=== PATIENT | male | born 1935 | race Caucasian/White ===

== ENCOUNTER 2022-09-25 19:12 | Inpatient (IN) | payer OTHER, MEDICAID ==
[~2022-09-25] VITALS: Wt 65.8 kg
[2022-09-25 19:00] VITALS: BP 120/60
[2022-09-25 19:28] VITALS: BP 120/60
[2022-09-25 20:00] VITALS: BP 120/60
[2022-09-25] MEDS ORDERED: ASPIRIN ADULT L81 M2 PO (21:19)
[2022-09-25] MEDS ORDERED: ATIVAN1 MG PO (21:20)
[2022-09-25] MEDS ORDERED: DULCOLAX10 M1 R (21:24)
[2022-09-25] MEDS ORDERED: COLACE CLEAR50 MG PO (21:29)
[2022-09-25] MEDS ORDERED: NEURONTIN300 MG PO (21:29)
[2022-09-25] MEDS ORDERED: KLONOPIN1 M1 PO (21:30)
[2022-09-25] MEDS ORDERED: LATU60TA PO (21:31)
[2022-09-25] MEDS ORDERED: NAMENDA10 MG PO (21:39)
[2022-09-25] MEDS ORDERED: OMEPRAZOLE20 M3 PO (21:41)
[2022-09-25] MEDS ORDERED: REMERON15 M2 PO (21:42)
[2022-09-25] MEDS ORDERED: EXELON1 EAC2 T (21:42)
[2022-09-25] MEDS ORDERED: TRIHEXYPHENIDYL2 M3 PO (21:44)
[2022-09-25] MEDS ORDERED: [UNRECOGNIZED DRUG - OTHER] T (21:47)
[2022-09-25] MEDS ORDERED: VITAMIN A T (21:47)
[2022-09-25] MEDS ORDERED: VOLTAREN ARTHRI20 GM T (21:48)
[2022-09-25] MEDS ORDERED: VITAMIN D325 MCG PO (21:51)
[2022-09-25] MEDS ORDERED: NORVASC5 MG PO (22:07)
[2022-09-26 06:51] LABS: THYROID STIM HORMONE (HS) 0.928 uIU/ml (0.358-4.75)
[2022-09-26 08:00] VITALS: BP 122/64
[2022-09-26 09:01] LABS: VITAMIN D, 25-HYDROXY 42.2 ng/mL (30-100)
[2022-09-26 20:00] VITALS: BP 140/66
[2022-09-27 08:00] VITALS: BP 126/70
[2022-09-27 20:00] VITALS: BP 145/84
[2022-09-28 08:00] VITALS: BP 118/62
[2022-09-28 20:00] VITALS: BP 142/59
[2022-09-29 07:36] VITALS: BP 122/67
[2022-09-29 20:00] VITALS: BP 122/67
[2022-09-30 08:15] VITALS: BP 129/96
[2022-09-30 20:56] VITALS: BP 118/83
[2022-10-01 12:47] LABS: NOTE: A
[2022-10-01 20:00] VITALS: BP 137/61
[2022-10-02 08:00] VITALS: BP 140/70
[2022-10-02] MEDS ORDERED: HOMEMED PO (16:53)
[2022-10-02] MEDS ORDERED: Sinemet 10-100MG PO (16:53)
[2022-10-02 20:00] VITALS: BP 139/65
[2022-10-03 07:46] VITALS: BP 127/66
== END 2022-10-03 12:38 | DRG 640 ==
LOC: 3N 19:12
PROVIDERS: ADMIT Psychiatry & Neurology Psychiatry; ATTEND Psychiatry & Neurology Psychiatry
DX: E87.8 Other disorders of electrolyte and fluid balance, not elsewhere classified (principal); N17.0 Acute kidney failure with tubular necrosis; F33.9 Major depressive disorder, recurrent, unspecified; F23 Brief psychotic disorder; F41.9 Anxiety disorder, unspecified; I10 Essential (primary) hypertension; R73.9 Hyperglycemia, unspecified; K21.9 Gastro-esophageal reflux disease without esophagitis; G47.9 Sleep disorder, unspecified; G20 Parkinson's disease; F03.90 Unspecified dementia, unspecified severity, without behavioral disturbance, psychotic disturbance, mood disturbance, and anxiety; Z88.0 Allergy status to penicillin; Z79.82 Long term (current) use of aspirin; Z79.899 Other long term (current) drug therapy